=== PATIENT | female | born 1970 | race Caucasian/White ===

== ENCOUNTER 2017-05-22 07:13 | Outpatient (CLI) | payer OTHER | END 2017-05-22 08:00 | LOC: LAB 07:13 | PROVIDERS: ATTEND Nurse Practitioner Family | DX: Z79.899 Other long term (current) drug therapy (principal) | CPT/HCPCS: 36415; 86703 ==

== ENCOUNTER 2018-10-17 07:15 | Outpatient (CLI) | payer OTHER ==
[2018-10-17 07:49] LABS: MEAN CORPUSCULAR HEMOGLOBIN 32.2 pg (28.0-34.0)
[2018-10-17 07:50] LABS: BASOPHILS % 0.6 % (0.0-1.5); EOSINOPHILS % 3.4 % (0.0-6.8); NEUTROPHILS # 5.9 # k/uL (1.4-7.7)
[2018-10-17 08:38] LABS: eGFR (Non-African) > 60
== END 2018-10-17 07:25 ==
LOC: LAB 07:15
PROVIDERS: ATTEND Internal Medicine Gastroenterology
DX: K50.90 Crohn's disease, unspecified, without complications (principal)
CPT/HCPCS: 36415; 80053; 85025

== ENCOUNTER 2018-11-03 07:16 | Outpatient (CLI) | payer OTHER ==
[2018-11-03 07:58] LABS: eGFR (Non-African) > 60
[2018-11-03 08:07] LABS: MEAN CORPUSCULAR HEMOGLOBIN 32.9 pg (28.0-34.0)
[2018-11-03 08:08] LABS: BASOPHILS % 0.5 % (0.0-1.5); EOSINOPHILS % 5.8 % (0.0-6.8); MONOCYTES % 7.9 % (0.0-11.0)
== END 2018-11-03 07:18 ==
LOC: LAB 07:16
PROVIDERS: ATTEND Internal Medicine Gastroenterology
DX: K50.90 Crohn's disease, unspecified, without complications (principal); Z79.899 Other long term (current) drug therapy
CPT/HCPCS: 36415; 80053; 85025